=== PATIENT | male | born 1975 | race Hispanic/Latino ===

== ENCOUNTER 2022-03-31 18:27 | Emergency (ER) | payer BC, OTHER ==
[2022-03-31] MEDS ORDERED: Methocarbamol 500 MG TAB PO SCH (19:15)
[2022-03-31] MEDS ORDERED: Ketorolac Tromethamine 30 MG/ML VIAL ONE (19:25)
[2022-03-31] MEDS ORDERED: Lidocaine 5% Patch TD SCH (20:00)
[2022-03-31] MEDS ORDERED: predniSONE 20 MG TAB ONE (20:57)
[2022-03-31] MEDS ORDERED: HYDROcodone/Acetaminophen 7.5/325 mg Tablet ONE (20:57)
[2022-04-01] MEDS ORDERED: Transdermal Patch Removal TOP SCH (08:00)
== END 2022-03-31 20:53 | disposition home or self-care (01) ==
LOC: CSHERS 18:27
DX: M50.122 Cervical disc disorder at C5-C6 level with radiculopathy (principal); M25.78 Osteophyte, vertebrae
CPT/HCPCS: 72125; 96372; J1885; J7512

== ENCOUNTER 2022-07-25 08:17 | Inpatient (IN) | payer BC, OTHER ==
[2022-07-25] MEDS ORDERED: Ondansetron PF 4 MG/2 ML Vial ONE (08:56)
[2022-07-25] MEDS ORDERED: Morphine 4 MG/ML VIAL ONE (08:56)
[2022-07-25 09:21] LABS: Hemoglobin 11.9 g/dL (13.5-17.5); Mean Corpuscular HGB CONC 35.1 g/dL (32.0-36.0); Mean Corpuscular Hemoglobin 31.5 pg (27.0-33.0); Mean Corpuscular Volume 89.7 fl (81.2-95.1); Mean Platelet Volume 9.7 fl (7.4-10.4); Platelet Count 372 10x3/uL (150-450); RBC Distribution Width 12.6 % (11.5-14.5); Red Blood Cell (RBC) Count 3.78 10x6/uL (4.32-5.72); White Blood Cell (WBC) Count 7.1 10x3/uL (3.5-10.5)
[2022-07-25 09:22] LABS: MDiff Complete? YES
[2022-07-25 09:24] LABS: ALT (SGPT) 23 U/L (8-55); AST (SGOT) 22 U/L (5-34); Albumin 4.9 g/dL (3.5-5.0); Alkaline Phosphatase 93 U/L (40-110); Anion Gap 18 mmol/L (10-20); BUN (Urea Nitrogen) 18 mg/dL (8.9-20.6); Bilirubin, Total 1.6 mg/dL (0.2-1.2); Calc. Creatinine Clearance 0 mL/min (70-130); Calcium 10.1 mg/dL (7.8-10.44); Carbon Dioxide 23 mmol/L (22-29); Chloride 104 mmol/L (98-107); Estimated GFR 26; Globulin 2.2 g/dL (2.4-3.5); Glucose 85 mg/dL (70-105); Lipase 5 U/L (8-78); Potassium 4.4 mmol/L (3.5-5.1); Protein, Total 7.1 g/dL (6.0-8.3); Sodium 141 mmol/L (136-145)
[2022-07-25 09:55] LABS: Eosinophils 2 % (0-10); Lymphocytes 32 % (21-51); Monocytes 3 % (0-10); Neutrophil 63 % (42-75)
[2022-07-25] MEDS ORDERED: Iopamidol 300 61% 100 ML VIAL FS ONE (09:55)
[2022-07-25 09:56] LABS: Platelet Morphology Comment Appears Adequate
[2022-07-25 09:58] LABS: RBC Morphology Normal
[2022-07-25] MEDS ORDERED: Ondansetron ODT 4 MG TAB PO PRN (10:28)
[2022-07-25] MEDS ORDERED: Lidocaine Viscous Sol 2% 15 ml UD Cup ONE (10:46)
[2022-07-25] MEDS ORDERED: Mag-Al Plus 1200 MG/1200 MG/120 MG/30 ML UDCUP ONE (10:46)
[2022-07-25] MEDS: Sodium Chloride 0.9% 1,000 ML IV SCH ×2 (13:33→22:35)
[2022-07-25 13:46] VITALS: BMI 28.8
[2022-07-25 14:20] LABS: Bilirubin Neg (Negative); Blood, Urine 25 (Negative); Clarity Clear (Clear); Glucose, Urine (Dipstick) Normal (Negative); Ketone, Urine Negative (Negative); Leukocyte Negative (Negative); Nitrite Negative (Negative); Protein, Urine (Dipstick) 30 mg/dl (Neg-Trace); pH, Urine 6.5 (5.0-9.0)
[2022-07-25 14:27] LABS: Bacteria/HPF None Seen HPF (None Seen)
[2022-07-25 14:28] LABS: RBC/HPF 0-3 HPF (0-3); Squamous Epithelial 0-3 HPF (0-3); WBC/HPF 0-3 HPF (0-3)
[2022-07-25] MEDS ORDERED: lamoTRIgine 100 MG TAB PO SCH ×2 (15:00)
[2022-07-25] MEDS: Acetaminophen 325 MG TAB PO PRN (18:08)
[2022-07-25] MEDS: Prazosin HCl 1 MG CAP PO SCH (20:47)
[2022-07-25] MEDS: lamoTRIgine 100 MG TAB PO SCH (20:47)
[2022-07-26 04:06] LABS: #Eosinphils 0.1 10x3/uL (0.0-0.5); #Monocytes 0.4 10x3/uL (0.0-1.1); #Neutrophils 3.9 10x3/uL (1.5-8.4); %Basophils 0.5 % (0.0-2.0); %Eosinophils 2.2 % (0.0-6.0); %Lymphocytes 29.6 % (18.0-47.0); %Monocytes 6.3 % (0.0-10.0); %Neutrophils 61.1 % (40.0-75.0); Hemoglobin 9.3 g/dL (13.5-17.5); Mean Corpuscular HGB CONC 34.2 g/dL (32.0-36.0); Mean Corpuscular Hemoglobin 31.2 pg (27.0-33.0); Mean Corpuscular Volume 91.3 fl (81.2-95.1); Mean Platelet Volume 9.6 fl (7.4-10.4); Platelet Count 290 10x3/uL (150-450); RBC Distribution Width 12.6 % (11.5-14.5); Red Blood Cell (RBC) Count 2.98 10x6/uL (4.32-5.72); White Blood Cell (WBC) Count 6.3 10x3/uL (3.5-10.5)
[2022-07-26 04:21] LABS: ALT (SGPT) 16 U/L (8-55); AST (SGOT) 16 U/L (5-34); Albumin 3.6 g/dL (3.5-5.0); Alkaline Phosphatase 65 U/L (40-110); Anion Gap 13 mmol/L (10-20); BUN (Urea Nitrogen) 15 mg/dL (8.9-20.6); Bilirubin, Total 0.8 mg/dL (0.2-1.2); Calc. Creatinine Clearance 40 mL/min (70-130); Calcium 8.7 mg/dL (7.8-10.44); Carbon Dioxide 24 mmol/L (22-29); Chloride 108 mmol/L (98-107); Estimated GFR 29; Globulin 1.7 g/dL (2.4-3.5); Glucose 76 mg/dL (70-105); Potassium 4.2 mmol/L (3.5-5.1); Protein, Total 5.3 g/dL (6.0-8.3); Sodium 141 mmol/L (136-145)
[2022-07-26] MEDS: Sodium Chloride 0.9% 1,000 ML IV SCH ×3 (06:12→23:01)
[2022-07-26] MEDS ORDERED: lamoTRIgine 100 MG TAB PO SCH (09:00)
[2022-07-26] MEDS: lamoTRIgine 100 MG TAB PO SCH ×2 (09:57→21:51)
[2022-07-26] MEDS: Venlafaxine HCl XR 75 MG CAP PO SCH (09:58)
[2022-07-26] MEDS: Acetaminophen 325 MG TAB PO PRN (10:20)
[2022-07-26] MEDS: Ondansetron PF 4 MG/2 ML Vial IVP PRN (10:22)
[2022-07-26] MEDS: Prazosin HCl 1 MG CAP PO SCH (21:51)
[2022-07-27] MEDS: Sodium Chloride 0.9% 1,000 ML IV SCH ×4 (02:00→21:37)
[2022-07-27 04:21] LABS: #Basophils 0.1 10x3/uL (0.0-0.2); #Eosinphils 0.1 10x3/uL (0.0-0.5); #Monocytes 0.4 10x3/uL (0.0-1.1); #Neutrophils 3.3 10x3/uL (1.5-8.4); %Basophils 0.9 % (0.0-2.0); %Eosinophils 2.4 % (0.0-6.0); %Lymphocytes 32.6 % (18.0-47.0); %Neutrophils 56.9 % (40.0-75.0); Hemoglobin 8.7 g/dL (13.5-17.5); Mean Corpuscular HGB CONC 34.3 g/dL (32.0-36.0); Mean Corpuscular Hemoglobin 31.5 pg (27.0-33.0); Mean Platelet Volume 9.8 fl (7.4-10.4); Platelet Count 271 10x3/uL (150-450); RBC Distribution Width 12.5 % (11.5-14.5); Red Blood Cell (RBC) Count 2.76 10x6/uL (4.32-5.72); White Blood Cell (WBC) Count 5.7 10x3/uL (3.5-10.5)
[2022-07-27 04:30] LABS: Anion Gap 11 mmol/L (10-20); Carbon Dioxide 24 mmol/L (22-29); Chloride 109 mmol/L (98-107); Potassium 4.3 mmol/L (3.5-5.1); Sodium 140 mmol/L (136-145)
[2022-07-27 04:31] LABS: ALT (SGPT) 13 U/L (8-55); AST (SGOT) 15 U/L (5-34); Albumin 3.4 g/dL (3.5-5.0); Alkaline Phosphatase 65 U/L (40-110); BUN (Urea Nitrogen) 13 mg/dL (8.9-20.6); Bilirubin, Total 0.7 mg/dL (0.2-1.2); Calc. Creatinine Clearance 38 mL/min (70-130); Calcium 8.6 mg/dL (7.8-10.44); Estimated GFR 28; Globulin 1.6 g/dL (2.4-3.5); Glucose 75 mg/dL (70-105)
[2022-07-27] MEDS: lamoTRIgine 100 MG TAB PO SCH ×2 (08:34→21:30)
[2022-07-27] MEDS: Venlafaxine HCl XR 75 MG CAP PO SCH (08:36)
[2022-07-27] MEDS: Ondansetron PF 4 MG/2 ML Vial IVP PRN (10:52)
[2022-07-27] MEDS: Acetaminophen 325 MG TAB PO PRN (10:52)
[2022-07-27 15:22] LABS: Bilirubin Neg (Negative); Blood, Urine 50 (Negative); Glucose, Urine (Dipstick) Normal (Negative); Ketone, Urine Negative (Negative); Leukocyte Negative (Negative); Nitrite Negative (Negative); Protein, Urine (Dipstick) 30 mg/dl (Neg-Trace); Specific Gravity, Urine 1.015 (1.005-1.030)
[2022-07-27 15:27] LABS: Clarity Clear (Clear)
[2022-07-27 15:30] LABS: RBC/HPF 0-3 HPF (0-3); Squamous Epithelial 0-3 HPF (0-3)
[2022-07-27 15:31] LABS: Bacteria/HPF None Seen HPF (None Seen)
[2022-07-27 15:40] LABS: Creatinine, Urine 137.42 mg/dL (63-166)
[2022-07-27] MEDS: Prazosin HCl 1 MG CAP PO SCH (21:30)
[2022-07-28 05:07] LABS: #Eosinphils 0.1 10x3/uL (0.0-0.5); #Monocytes 0.3 10x3/uL (0.0-1.1); #Neutrophils 2.7 10x3/uL (1.5-8.4); %Basophils 0.6 % (0.0-2.0); %Eosinophils 2.2 % (0.0-6.0); %Lymphocytes 36.1 % (18.0-47.0); %Monocytes 6.8 % (0.0-10.0); %Neutrophils 53.9 % (40.0-75.0); Hemoglobin 8.1 g/dL (13.5-17.5); Mean Corpuscular Hemoglobin 31.3 pg (27.0-33.0); Mean Corpuscular Volume 91.9 fl (81.2-95.1); Platelet Count 247 10x3/uL (150-450); RBC Distribution Width 12.5 % (11.5-14.5); Red Blood Cell (RBC) Count 2.59 10x6/uL (4.32-5.72)
[2022-07-28 05:23] LABS: ALT (SGPT) 13 U/L (8-55); AST (SGOT) 16 U/L (5-34); Albumin 3.5 g/dL (3.5-5.0); Alkaline Phosphatase 61 U/L (40-110); Anion Gap 13 mmol/L (10-20); BUN (Urea Nitrogen) 11 mg/dL (8.9-20.6); Bilirubin, Total 0.6 mg/dL (0.2-1.2); Calc. Creatinine Clearance 40 mL/min (70-130); Calcium 8.4 mg/dL (7.8-10.44); Carbon Dioxide 22 mmol/L (22-29); Chloride 110 mmol/L (98-107); Estimated GFR 29; Globulin 1.5 g/dL (2.4-3.5); Glucose 76 mg/dL (70-105); Potassium 3.8 mmol/L (3.5-5.1); Sodium 141 mmol/L (136-145)
[2022-07-28] MEDS: Sodium Chloride 0.9% 1,000 ML IV SCH ×3 (06:35→21:21)
[2022-07-28] MEDS: lamoTRIgine 100 MG TAB PO SCH ×2 (08:47→21:20)
[2022-07-28] MEDS: Venlafaxine HCl XR 75 MG CAP PO SCH (08:48)
[2022-07-28 10:34] LABS: Iron 93 ug/dL (65-175); Iron Binding Capacity, Total 209 mcg/dL (261-462)
[2022-07-28 12:04] LABS: Ferritin 232.71 ng/mL (22-322)
[2022-07-28] MEDS ORDERED: hydrALAZINE 20 MG/ML VIAL SLOW IVP PRN (13:04)
[2022-07-28] MEDS ORDERED: Amlodipine 5 MG TAB PO SCH (13:15)
[2022-07-28] MEDS: Ondansetron PF 4 MG/2 ML Vial IVP PRN (13:36)
[2022-07-28] MEDS: Acetaminophen 325 MG TAB PO PRN (16:17)
[2022-07-28] MEDS: Prazosin HCl 1 MG CAP PO SCH (21:21)
[2022-07-29 04:32] LABS: ALT (SGPT) 12 U/L (8-55); AST (SGOT) 16 U/L (5-34); Albumin 3.5 g/dL (3.5-5.0); Alkaline Phosphatase 61 U/L (40-110); Anion Gap 13 mmol/L (10-20); BUN (Urea Nitrogen) 9 mg/dL (8.9-20.6); Bilirubin, Total 0.6 mg/dL (0.2-1.2); Calc. Creatinine Clearance 40 mL/min (70-130); Calcium 8.6 mg/dL (7.8-10.44); Carbon Dioxide 23 mmol/L (22-29); Chloride 112 mmol/L (98-107); Estimated GFR 29; Globulin 1.5 g/dL (2.4-3.5); Glucose 77 mg/dL (70-105); Potassium 4.6 mmol/L (3.5-5.1); Sodium 143 mmol/L (136-145)
[2022-07-29 04:37] LABS: #Eosinphils 0.1 10x3/uL (0.0-0.5); #Monocytes 0.4 10x3/uL (0.0-1.1); #Neutrophils 3.1 10x3/uL (1.5-8.4); %Basophils 0.5 % (0.0-2.0); %Lymphocytes 34.3 % (18.0-47.0); %Monocytes 6.9 % (0.0-10.0); %Neutrophils 55.8 % (40.0-75.0); Hemoglobin 8.4 g/dL (13.5-17.5); Mean Corpuscular HGB CONC 33.7 g/dL (32.0-36.0); Mean Corpuscular Hemoglobin 31.1 pg (27.0-33.0); Mean Corpuscular Volume 92.2 fl (81.2-95.1); Mean Platelet Volume 10.1 fl (7.4-10.4); Platelet Count 270 10x3/uL (150-450); RBC Distribution Width 12.6 % (11.5-14.5); White Blood Cell (WBC) Count 5.5 10x3/uL (3.5-10.5)
[2022-07-29] MEDS: Sodium Chloride 0.9% 1,000 ML IV SCH ×3 (05:54→20:34)
[2022-07-29] MEDS: Amlodipine 5 MG TAB PO SCH (09:28)
[2022-07-29] MEDS: lamoTRIgine 100 MG TAB PO SCH ×2 (09:28→20:33)
[2022-07-29] MEDS: Venlafaxine HCl XR 75 MG CAP PO SCH (09:28)
[2022-07-29] MEDS: Acetaminophen 325 MG TAB PO PRN (09:55)
[2022-07-29] MEDS ORDERED: traMADol HCl 50 MG TAB PO PRN (15:31)
[2022-07-29 20:32] LABS: Hemoglobin A1c 5.3 % (4.0-6.0)
[2022-07-29] MEDS: Prazosin HCl 1 MG CAP PO SCH (20:33)
[2022-07-29] MEDS: Cyclobenzaprine 10 MG TAB PO PRN (20:33)
[2022-07-29] MEDS: Ondansetron PF 4 MG/2 ML Vial IVP PRN (20:54)
[2022-07-30 05:08] LABS: ALT (SGPT) 13 U/L (8-55); AST (SGOT) 14 U/L (5-34); Albumin 3.4 g/dL (3.5-5.0); Alkaline Phosphatase 66 U/L (40-110); Anion Gap 12 mmol/L (10-20); BUN (Urea Nitrogen) 7 mg/dL (8.9-20.6); Bilirubin, Total 0.5 mg/dL (0.2-1.2); Calc. Creatinine Clearance 42 mL/min (70-130); Calcium 8.5 mg/dL (7.8-10.44); Carbon Dioxide 24 mmol/L (22-29); Chloride 111 mmol/L (98-107); Estimated GFR 30; Globulin 1.5 g/dL (2.4-3.5); Glucose 78 mg/dL (70-105); Potassium 4.1 mmol/L (3.5-5.1); Protein, Total 4.9 g/dL (6.0-8.3); Sodium 143 mmol/L (136-145)
[2022-07-30] MEDS: Sodium Chloride 0.9% 1,000 ML IV SCH ×3 (05:15→14:52)
[2022-07-30 05:21] LABS: Mean Corpuscular HGB CONC 34.3 g/dL (32.0-36.0); Mean Corpuscular Hemoglobin 31.3 pg (27.0-33.0); RBC Distribution Width 12.6 % (11.5-14.5); Red Blood Cell (RBC) Count 2.56 10x6/uL (4.32-5.72); White Blood Cell (WBC) Count 5.5 10x3/uL (3.5-10.5)
[2022-07-30 05:22] LABS: #Eosinphils 0.1 10x3/uL (0.0-0.5); #Monocytes 0.4 10x3/uL (0.0-1.1); #Neutrophils 3.2 10x3/uL (1.5-8.4); %Basophils 0.7 % (0.0-2.0); %Eosinophils 1.8 % (0.0-6.0); %Lymphocytes 32.1 % (18.0-47.0); %Monocytes 7.6 % (0.0-10.0); %Neutrophils 57.3 % (40.0-75.0); Mean Platelet Volume 10.3 fl (7.4-10.4); Platelet Count 253 10x3/uL (150-450)
[2022-07-30] MEDS: Acetaminophen 325 MG TAB PO PRN (08:26)
[2022-07-30] MEDS: Amlodipine 5 MG TAB PO SCH (08:26)
[2022-07-30] MEDS: lamoTRIgine 100 MG TAB PO SCH ×2 (08:27→20:33)
[2022-07-30] MEDS: Venlafaxine HCl XR 75 MG CAP PO SCH (08:28)
[2022-07-30 16:56] LABS: PTT 29.6 sec (22.0-33.0); Prothrombin Time 10.9 sec (9.5-12.1)
[2022-07-30 17:01] LABS: Iron 92 ug/dL (65-175); Iron Binding Capacity, Total 213 mcg/dL (261-462)
[2022-07-30 17:14] LABS: HIV (1/2) Antibody/Antigen Non-Reactive (NonReactive); HIV 1/2 INDEX 0.07 S/CO (<1.00)
[2022-07-30] MEDS: Prazosin HCl 1 MG CAP PO SCH (20:29)
[2022-07-30] MEDS: Cyclobenzaprine 10 MG TAB PO PRN (20:29)
[2022-07-30 20:56] LABS: Sex Hormone Binding Globulin 101.6 nmol/L (11-78)
[2022-07-30 21:34] LABS: Testosterone, Free Greater than 182.9 pg/mL (47-244)
[2022-07-30 22:18] LABS: Testosterone, Total Greater than 1500.0 ng/dL (240-871)
[2022-07-30 23:24] LABS: Hep C IgG Ab Non-Reactive S/CO (NonReactive); Hep C Index 0.07 S/CO (0-0.79)
[2022-07-30 23:30] LABS: Complement-C4 24.8 mg/dL (15-53)
[2022-07-31] MEDS: Sodium Chloride 0.9% 1,000 ML IV SCH ×2 (02:20→21:02)
[2022-07-31] MEDS: Venlafaxine HCl XR 75 MG CAP PO SCH (08:21)
[2022-07-31] MEDS: Amlodipine 5 MG TAB PO SCH (08:23)
[2022-07-31] MEDS: lamoTRIgine 100 MG TAB PO SCH ×2 (09:03→20:58)
[2022-07-31 11:49] LABS: #Eosinphils 0.1 10x3/uL (0.0-0.5); #Monocytes 0.4 10x3/uL (0.0-1.1); #Neutrophils 3.7 10x3/uL (1.5-8.4); %Basophils 0.7 % (0.0-2.0); %Eosinophils 1.9 % (0.0-6.0); %Lymphocytes 26.8 % (18.0-47.0); %Monocytes 6.7 % (0.0-10.0); %Neutrophils 63.4 % (40.0-75.0); Hemoglobin 8.8 g/dL (13.5-17.5); Mean Corpuscular HGB CONC 34.1 g/dL (32.0-36.0); Mean Corpuscular Hemoglobin 31.2 pg (27.0-33.0); Mean Corpuscular Volume 91.5 fl (81.2-95.1); Mean Platelet Volume 9.9 fl (7.4-10.4); Platelet Count 275 10x3/uL (150-450); RBC Distribution Width 12.8 % (11.5-14.5); Red Blood Cell (RBC) Count 2.82 10x6/uL (4.32-5.72); White Blood Cell (WBC) Count 5.8 10x3/uL (3.5-10.5)
[2022-07-31 11:54] LABS: Anion Gap 12 mmol/L (10-20); BUN (Urea Nitrogen) 7 mg/dL (8.9-20.6); Calc. Creatinine Clearance 43 mL/min (70-130); Calcium 8.5 mg/dL (7.8-10.44); Carbon Dioxide 25 mmol/L (22-29); Chloride 109 mmol/L (98-107); Estimated GFR 32; Glucose 103 mg/dL (70-105); Potassium 3.8 mmol/L (3.5-5.1); Sodium 142 mmol/L (136-145)
[2022-07-31 11:57] LABS: ALT (SGPT) 11 U/L (8-55); AST (SGOT) 16 U/L (5-34); Albumin 3.7 g/dL (3.5-5.0); Alkaline Phosphatase 69 U/L (40-110); Anion Gap 11 mmol/L (10-20); BUN (Urea Nitrogen) 7 mg/dL (8.9-20.6); Bilirubin, Total 0.7 mg/dL (0.2-1.2); Calc. Creatinine Clearance 43 mL/min (70-130); Calcium 8.5 mg/dL (7.8-10.44); Carbon Dioxide 25 mmol/L (22-29); Chloride 109 mmol/L (98-107); Estimated GFR 32; Globulin 1.5 g/dL (2.4-3.5); Glucose 103 mg/dL (70-105); Protein, Total 5.2 g/dL (6.0-8.3); Sodium 141 mmol/L (136-145)
[2022-07-31] MEDS ORDERED: lamoTRIgine 100 MG TAB PO SCH (16:00)
[2022-07-31 17:41] LABS: Urine Total Volume 3600 mL (800-1800)
[2022-07-31 18:01] LABS: Protein - 24 Hr 7092 mg/24 hr (Less than 300); Protein, Urine 197 mg/dL (1-14)
[2022-07-31] MEDS: Cyclobenzaprine 10 MG TAB PO PRN (19:01)
[2022-07-31] MEDS: Prazosin HCl 1 MG CAP PO SCH (20:57)
[2022-07-31] MEDS: Labetalol HCl 100 MG TAB PO SCH (20:58)
[2022-07-31] MEDS: Ondansetron PF 4 MG/2 ML Vial IVP PRN (22:54)
[2022-08-01 05:14] LABS: Hep B Surface AG-Rflx Sendout Negative (Negative); Hepatitis B Core Total Negative (Negative); Hepatitis B Surface AB-Sendout Non Reactive (.)
[2022-08-01 06:27] LABS: #Eosinphils 0.1 10x3/uL (0.0-0.5); #Monocytes 0.4 10x3/uL (0.0-1.1); #Neutrophils 3.5 10x3/uL (1.5-8.4); %Basophils 0.7 % (0.0-2.0); %Eosinophils 2.1 % (0.0-6.0); %Lymphocytes 29.3 % (18.0-47.0); %Monocytes 7.5 % (0.0-10.0); %Neutrophils 59.9 % (40.0-75.0); Hemoglobin 8.1 g/dL (13.5-17.5); Mean Corpuscular HGB CONC 34.2 g/dL (32.0-36.0); Mean Corpuscular Volume 90.8 fl (81.2-95.1); Mean Platelet Volume 9.4 fl (7.4-10.4); Platelet Count 250 10x3/uL (150-450); RBC Distribution Width 12.7 % (11.5-14.5); Red Blood Cell (RBC) Count 2.61 10x6/uL (4.32-5.72); White Blood Cell (WBC) Count 5.8 10x3/uL (3.5-10.5)
[2022-08-01 06:42] LABS: ALT (SGPT) 13 U/L (8-55); AST (SGOT) 14 U/L (5-34); Albumin 3.4 g/dL (3.5-5.0); Alkaline Phosphatase 70 U/L (40-110); Anion Gap 16 mmol/L (10-20); BUN (Urea Nitrogen) 7 mg/dL (8.9-20.6); Bilirubin, Total 0.7 mg/dL (0.2-1.2); Calc. Creatinine Clearance 42 mL/min (70-130); Calcium 8.9 mg/dL (7.8-10.44); Carbon Dioxide 24 mmol/L (22-29); Chloride 108 mmol/L (98-107); Estimated GFR 31; Globulin 1.7 g/dL (2.4-3.5); Glucose 82 mg/dL (70-105); Potassium 3.9 mmol/L (3.5-5.1); Protein, Total 5.1 g/dL (6.0-8.3); Sodium 144 mmol/L (136-145)
[2022-08-01] MEDS: Amlodipine 5 MG TAB PO SCH (08:02)
[2022-08-01] MEDS: Venlafaxine HCl XR 75 MG CAP PO SCH (08:03)
[2022-08-01] MEDS: Labetalol HCl 100 MG TAB PO SCH (08:03)
[2022-08-01] MEDS: lamoTRIgine 100 MG TAB PO SCH (08:03)
[2022-08-01] MEDS: Acetaminophen 325 MG TAB PO PRN (08:04)
[2022-08-01 12:22] VITALS: BP 169/86; TEMP 98.1
[2022-08-01 13:17] LABS: ANA Symphony (Qualitative) Negative (Negative); ANA Symphony (Quantitative) 0.2 Ratio (< 0.7 Negative); Cardiolipin IgA Ab 0.4 APL-U/mL (<14 Negative); Cardiolipin IgG Ab 0.6 GPL-U/mL (<10 Negative); Cardiolipin IgM Ab Less than 0.9 MPL-U/mL (<10 Negative); EliA APS New Method **** NEW METHOD ****; beta-2-Glycoprotein I IgA Ab 0.3 U/mL (<7 Negative); beta-2-Glycoprotein I IgG Ab 0.8 U/mL (<7 Negative); beta-2-Glycoprotein I IgM Abs Less than 2.4 U/mL (<7 Negative); dsDNA IgG Antibody Less than 0.6 IU/mL (<10 Negative)
[2022-08-02 15:15] LABS: Cytoplasmic (C-ANCA) <1:20 titer (Neg:<1:20); Perinuclear (P-ANCA) <1:20 titer (Neg:<1:20)
[2022-08-02 15:15] LABS: Albumin-Ur 2.8 % (.); Alpha 1 - Ur 0.9 % (.); Alpha 2 - Ur 0.7 % (.); Beta-Ur 5.4 % (.); Gamma-Ur 90.2 % (.); M-Spike,% 84.6 % (Not Observed); Protein, Urine 308.6 mg/dL (Not Estab.)
[2022-08-02 15:25] LABS: DRVVT Confirm 32.7; HEX PHOS LA Tube 1 46.7 SEC; HEX PHOS LA Tube 2 44.7 SEC; Hexagonal Phospholipid Neut 1.9 SEC (0-8.0)
[2022-08-02 18:12] LABS: Glomerular Basmt Membrane ABS Less than 0.2 units (0.0-0.9)
[2022-08-03] MEDS ORDERED: lamoTRIgine 100 MG TAB PO SCH (09:00)
[2022-08-06] MEDS ORDERED: lamoTRIgine 25 MG TAB PO SCH (09:00)
[2022-08-09] MEDS ORDERED: lamoTRIgine 25 MG TAB PO SCH (09:00)
== END 2022-08-01 12:31 | disposition home or self-care (01) | DRG 392 ==
LOC: CSHERS 08:17 → CSHERHOLD 11:50 → CSHTELE 16:30
PROVIDERS: ADMIT Internal Medicine; ATTEND Family Medicine
DX: A08.4 Viral intestinal infection, unspecified (principal); N17.9 Acute kidney failure, unspecified; N18.4 Chronic kidney disease, stage 4 (severe); E66.9 Obesity, unspecified; E86.0 Dehydration; D63.1 Anemia in chronic kidney disease; E88.09 Other disorders of plasma-protein metabolism, not elsewhere classified; I12.9 Hypertensive chronic kidney disease with stage 1 through stage 4 chronic kidney disease, or unspecified chronic kidney disease; M54.50 Low back pain, unspecified; G89.29 Other chronic pain; Z68.28 Body mass index [BMI] 28.0-28.9, adult; K82.8 Other specified diseases of gallbladder; Z98.890 Other specified postprocedural states; Z79.899 Other long term (current) drug therapy; Z98.84 Bariatric surgery status
CPT/HCPCS: 36415; 36416; 71045; 74177; 76705; 80048; 80053; 81001; 81003; 81015; 82024; 82088; 82306; 82533; 82550; 82570; 82607; 82627; 82642; 82652; 82670; 82728; 83036; 83498; 83516; 83540; 83550; 83690; 83835; 83880; 83930; 83935; 83970; 84156; 84166; 84244; 84270; 84300; 84403; 84484; 85025; 85240; 85250; 85598; 85610; 85613; 85730; 86037; 86038; 86146; 86147; 86160; 86225; 86704; 86706; 86803; 87340; 87389; 93005; 94760; 96361; 96374; 96375; J2270; J2405; J7050; Q0162; Q9967

== ENCOUNTER 2022-08-06 09:22 | Outpatient (CLI) | payer OTHER ==
[2022-08-06] MEDS ORDERED: Magnevist 469MG/ML 20 ML VIAL ONE (09:56)
== END 2022-08-06 09:23 | disposition home or self-care (01) ==
LOC: CSHMRI 09:22
DX: M51.36 Other intervertebral disc degeneration, lumbar region (principal); M50.30 Other cervical disc degeneration, unspecified cervical region; M47.816 Spondylosis without myelopathy or radiculopathy, lumbar region; Z98.890 Other specified postprocedural states; M47.12 Other spondylosis with myelopathy, cervical region
CPT/HCPCS: 72141; 72158

== ENCOUNTER 2022-12-10 07:50 | Outpatient (CLI) | payer OTHER | END 2022-12-10 07:51 | disposition home or self-care (01) | LOC: CSHCP 07:50 | DX: Z13.83 Encounter for screening for respiratory disorder NEC (principal) | CPT/HCPCS: 94010; 94726; 94729; 94760 ==